=== PATIENT | male | born 1985 | race Two or more races ===

== ENCOUNTER → 2017-08-02 | Outpatient (CLI) | payer OTHER ==
[~2017-08-02] MED LIST: ADVAIR 250/501 DISK IH; ADVAIR 500/501 DISK IH; DELTASONE20 MG PO; DUONEB3 ML IH; PROVENTIL,2.5 MG/0.5 IH; PROVENTIL,2.5 MG/3 M IH; PROVENTIL17 GM IH; SINGULAIR10 MG PO; SINGULAIR5 MG PO; Tylenol W/ Codeine PO; predniSONE PO
== END | disposition home or self-care (01) ==
LOC: RES 09:58
DX: J98.4 Other disorders of lung (principal)
CPT/HCPCS: 94060; 94726; 94729